=== PATIENT | female | born 1945 | race African-American/Black ===

== ENCOUNTER 2020-03-26 11:37 | Inpatient (IN) | payer MEDICAID, MEDICARE ==
[~2020-03-26] VITALS: Ht 157.5 cm; Wt 90.7 kg
[2020-03-26 11:53] VITALS: BP 156/72
--- NOTE | 2020-03-26 11:55 | NUR ---
dr nunez at bedside evaluating pt.
--- NOTE | 2020-03-26 11:56 | NUR ---
biba bls c/o sob for 2 weeks , afibrile , pmhx of chf , htn . under medication with furosemide . Pt awake , alert, afibrile , sce with bibasaler rales blf . round soft nabs nontender abdomen.
--- NOTE | 2020-03-26 12:03 | NUR ---
xray at bedside.
--- NOTE | 2020-03-26 12:07 | NUR ---
emt at bedside doing ekg .
--- NOTE | 2020-03-26 12:23 | NUR ---
spoke to grand daughter of pt on the phone , gave number [phone].
[2020-03-26 12:29] LABS: BASOPHILS % (AUTO) 0.4 % (0.0-2.0); EOSINOPHILS % (AUTO) 0.4 % (0.0-4.0); LYMPHOCYTES # (AUTO) 1.6 K/uL (2.5-16.5); LYMPHOCYTES % (AUTO) 17.5 % (20.5-51.1); MEAN CORPUSCULAR HEMOGLOBIN 19 pg (27-31); MEAN CORPUSCULAR HGB CONC 29 g/dL (33-37); MEAN CORPUSCULAR VOLUME 65.2 fL (80-94); MONOCYTES # (AUTO) 0.4 K/uL (0.8-1.0); MONOCYTES % (AUTO) 4.9 % (1.7-9.3); NEUTROPHILS # (AUTO) 6.8 K/uL (1.8-7.7); NEUTROPHILS % (AUTO) 76.8 % (42.2-75.2); PLATELET COUNT (AUTO) 330 K/uL (140-450); RED BLOOD CELL COUNT(AUTO) 3.02 MIL/uL (4.20-5.40); RED CELL DISTRIBUTION WIDTH 20.8 % (11.6-13.7); WHITE BLOOD COUNT (AUTO) 8.9 K/uL (4.8-10.8)
[2020-03-26] MEDS ORDERED: FUROSEMIDE 40 MG/4 ML VIAL IVP ONE (12:35)
[2020-03-26 12:41] LABS: HEMATOCRIT 19.7 % (36-48); HEMOGLOBIN 5.7 g/dL (12.0-16.0)
--- NOTE | 2020-03-26 12:49 | NUR ---
RT at bedside for ABG, vss, pt stable at this time
--- NOTE | 2020-03-26 13:00 | NUR ---
IV 18ga rt a/c done, lab at bedside-blood sent.
[2020-03-26] MEDS ORDERED: ACETAMINOPHEN 325 MG TAB PO PRN ×2 (13:40→17:40)
[2020-03-26] MEDS ORDERED: HYDROcodone/APAP 5/325 MG 1 TAB TAB PO PRN ×2 (13:40→17:40)
[2020-03-26] MEDS ORDERED: DOCUSATE SODIUM 100 MG GELCAP PO PRN ×2 (13:40→17:40)
[2020-03-26] MEDS ORDERED: MORPHINE SULFATE 2 MG/ML SYR IVP PRN (13:40)
[2020-03-26] MEDS ORDERED: ONDANSETRON 4 MG/2 ML VIAL IM/IVP PRN ×2 (13:40→17:40)
[2020-03-26 13:46] LABS: PROTHROMBIN TIME 10.1 secs (10.8-13.4)
[2020-03-26 14:00] VITALS: BP 103/51
--- NOTE | 2020-03-26 14:00 | NUR ---
RECEIVED BEDSIDE REPORT FROM ED NURSE. PT RESTING IN BED. ABLE TO MAKE NEEDS KNOWN. RESPIRATIONS EVEN AND UNLABORED WITH NO SOB OR RESPIRATORY DISTRESS. SKIN WARM AND DRY TO TOUCH. MRSA SWAB COLLECTED. UA COLLECTED WELL. SAFETY MEASURES IN PLACE. WILL CONTINUE TO MONITOR
[2020-03-26] MEDS ORDERED: AMLO2.5T PO (14:15)
[2020-03-26] MEDS ORDERED: ISOS10TA9 PO (14:16)
--- NOTE | 2020-03-26 14:28 | NUR ---
Patient will be admitted to care of Dr Painting. Admited to tele. Will go to room 125 a. Belongings list completed. Report to godwin andersen.
[2020-03-26 14:33] LABS: ALBUMIN 2.6 g/dL (3.4-5.0); ANION GAP 16.2 (8-16); ASPARTATE AMINOTRANSFERASE 19 U/L (15-37); CARBON DIOXIDE 23.8 mmol/L (21-32); CHLORIDE 103 mmol/L (98-107); CREATININE 0.8 mg/dL (0.6-1.3); GLUCOSE 185 mg/dL (74-106); SODIUM SERUM 140 mmol/L (136-145); TOTAL BILIRUBIN 0.2 mg/dL (0.0-1.0); UREA NITROGEN, BLOOD 10 mg/dL (7-18)
[2020-03-26] MEDS ORDERED: POTASSIUM CHLORIDE 10 MEQ TABER PO SCH (15:00)
[2020-03-26 15:25] LABS: MAGNESIUM 1.7 mg/dL (1.8-2.4); PHOSPHORUS 2.5 mg/dL (2.5-4.9); THYROID STIMULATING HORMONE 3.24 uIU/mL (0.34-3.74)
--- NOTE | 2020-03-26 15:30 | NUR ---
PT IS TO HAVE BLOOD TRANSFUSION. VERIFIED WITH COSMETICS COUNTER MANAGER. SECOND RN VERIFIED BLOOD AND VITAL SIGNS OBTAINED PRIOR TO HANGING. BLOOD TRANSFUSION HAS STARTED. SAFETY MEASURES IN PLACE. WILL CONTINUE TO MONITOR
[2020-03-26] MEDS: NACL 0.9% 1,000 ML IV SCH (15:59)
--- NOTE | 2020-03-26 16:00 | NUR ---
ADMINISTERED SCHED MED PRESCRIBED PER MD ORDER. PT TOLERATED WELL. MEDICATION EDUCATION PERFORMED. PT VERBALIZED UNDERSTANDING. SAFETY MEASURES IN PLACE. WILL CONTINUE TO MONITOR
[2020-03-26] MEDS ORDERED: LORazepam 2 MG/ML VIAL IM/IVP PRN (17:40)
[2020-03-26] MEDS ORDERED: MEDICATION REC. PHARMACY CONS. 1 EA MISC MC PRN (17:40)
[2020-03-26] MEDS ORDERED: MELATONIN 3 MG TAB PO PRN (17:40)
[2020-03-26] MEDS ORDERED: hydrALAZINE 20 MG/ML VIAL IVP PRN (17:45)
[2020-03-26] MEDS ORDERED: MAG SULF 2000 MG/WATER PREMIX 50 ML IV SCH ×2 (18:00→20:00)
[2020-03-26] MEDS ORDERED: ZOLPIDEM 5 MG TAB PO PRN (18:00)
[2020-03-26] MEDS ORDERED: DEXTROSE 50% 50 ML SYR IVP PRN (18:20)
[2020-03-26] MEDS ORDERED: GLUCAGON 1 MG VIAL IVP PRN (18:20)
--- NOTE | 2020-03-26 18:20 | NUR ---
PT FINISHED 1 UNIT OF BLOOD. NO COMPLICATIONS OR CONCERNS AT THIS TIME. PT TOLERATED WELL. SAFETY MEASURES IN PLACE. WILL CONTINUE TO MONITOR
[2020-03-26 18:40] LABS: APPEARANCE,URINE CLEAR (CLEAR); BILIRUBIN,URINE NEGATIVE (NEGATIVE); BLOOD, URINE NEGATIVE (NEGATIVE); COLOR,URINE YELLOW (YELLOW); LEUKOCYTE ESTERASE ,URINE NEGATIVE (NEGATIVE); NITRITE, URINE NEGATIVE (NEGATIVE); PH,URINE 6.5 (5.0-9.0); UGLUCOSE NEGATIVE (NEGATIVE)
[2020-03-26 18:48] LABS: BARBITURATE, URINE NEGATIVE ng/ml (NEG <=200); BENZODIAZEPINE, URINE NEGATIVE ng/mL (NEG <=200); CANNABINOID, URINE NEGATIVE ng/mL (NEG <=50); COCAINE, URINE NEGATIVE ng/mL (NEG <=300); OPIATE, URINE NEGATIVE ng/mL (NEG <=2000); PHENCYCLIDINE SCREEN,URINE NEGATIVE ng/mL (NEG <=25)
--- NOTE | 2020-03-26 19:05 | NUR ---
ADMINISTERED SCHED MED PRESCRIBED PER MD ORDER. PT TOLERATED WELL. MEDICATION EDUCATION PERFORMED. PT VERBALIZED UNDERSTANDING. SAFETY MEASURES IN PLACE. WILL CONTINUE TO MONITOR
[2020-03-26] MEDS: DOCUSATE SODIUM 100 MG GELCAP PO SCH (19:08)
--- NOTE | 2020-03-26 19:15 | NUR ---
ENDORSED AT BEDSIDE WITH NIGHTSHIFT NURSE. PT IS STABLE
--- NOTE | 2020-03-26 19:16 | NUR ---
RECEIVED BEDSIDE SHIFT REPORT FROM AM NURSE FOR CONTINUITY OF CARE. PT AWAKE AND ALERT IN BED. NO SIGNS OF DISTRESS NOTED. ALL MONITORS ATTACHED AND CALL LIGHT WITHIN REACH.
[2020-03-26 20:00] VITALS: BP 179/69
--- NOTE | 2020-03-26 20:42 | NUR ---
PT COMPLAINED OF SHORTNESS OF BREATH. IMMEDIATELY OBTAINED SPO2 READING. PT AT 98%. PT SAID IT FEELS DIFFICULT TO BREATH. SPOKE WITH MD. JESSICA AND HE SAID TO PLACE PATIENT ON 2L O2 VIA NC FOR COMFORT MEASURES AND HE ORDERED REPEAT LABS TO ASSESS H&H. PT TOLERATED WELL SPO2 INCREASEED TO 100%
[2020-03-26] MEDS: ISOSORBIDE DINITRATE 20 MG TAB PO SCH (21:51)
--- NOTE | 2020-03-26 21:51 | NUR ---
ADMINISTERED 2100 MEDICATIONS. PT TOLERATED WELL NO SIGNS OF DISTRESS NOTED. MONITORS ATTACHED AND CALL LIGHT WITHIN REACH
[2020-03-26] MEDS: BLOOD GLUCOSE MONITORING 1 DEV DEV FS SCH (21:57)
[2020-03-26 23:41] LABS: BASOPHILS % (AUTO) 0.2 % (0.0-2.0); EOSINOPHILS % (AUTO) 0.3 % (0.0-4.0); LYMPHOCYTES # (AUTO) 1.3 K/uL (2.5-16.5); LYMPHOCYTES % (AUTO) 12.8 % (20.5-51.1); MEAN CORPUSCULAR HEMOGLOBIN 21 pg (27-31); MEAN CORPUSCULAR HGB CONC 30 g/dL (33-37); MEAN CORPUSCULAR VOLUME 68.4 fL (80-94); MONOCYTES # (AUTO) 0.5 K/uL (0.8-1.0); MONOCYTES % (AUTO) 5.2 % (1.7-9.3); NEUTROPHILS # (AUTO) 8.3 K/uL (1.8-7.7); NEUTROPHILS % (AUTO) 81.5 % (42.2-75.2); PLATELET COUNT (AUTO) 291 K/uL (140-450); RED BLOOD CELL COUNT(AUTO) 2.93 MIL/uL (4.20-5.40); RED CELL DISTRIBUTION WIDTH 24.7 % (11.6-13.7); WHITE BLOOD COUNT (AUTO) 10.2 K/uL (4.8-10.8)
[2020-03-27] VITALS: BP 156/75
--- NOTE | 2020-03-27 00:20 | NUR ---
RECEIVED A CALL FROM ANAYELI IN LAB WITH A CRITICAL LAB VALUE. PT HEMOGLOBIN 6.0 AND HEMATOCRIT 20.0. IMMEDIATELY AFTER HANGING UP RELAYED LAB VALUE TO DR JESSICA. HE PLACED AN ORDER FOR PRBC TO BE ADMINISTERED WHEN BLOOD IS READY FROM LAB
[2020-03-27 00:55] LABS: FREE T4 (FREE THYROXINE) 0.99 ng/dL (0.76-1.46)
--- NOTE | 2020-03-27 02:18 | NUR ---
ROUNDING. PT EXPERIENCING SOB. SPO2 AT 100% ON 2LO2. MD AWARE OF PT SYMPTOMS WILL ADMINISTER BLOOD PRODUCT WHEN READY FROM LAB
--- NOTE | 2020-03-27 03:10 | NUR ---
PRE-ADMINISTRATION VS OBTAINED FROM PT. BP AT 137/58. PT AWAKE AND ALERT. SPO2 AT 100%. NO SIGNS OF DISTRESS NOTED. WILL OBTAIN BLOOD PRODUCT FROM LAB NOW
--- NOTE | 2020-03-27 03:35 | NUR ---
BLOOD PRODUCT ADMIN STARTED AT 0320. PT V/S WITHIN THE FIRST 15MINUTES WERE WITHIN NORMAL LIMITS, BP IS SLITGHTLY ELEVATED. PT DENIES SYMPTOMS OF INFUSION REACTION. WILL CONTINUE TO MONITOR
[2020-03-27 04:00] VITALS: BP 141/71
--- NOTE | 2020-03-27 05:50 | NUR ---
HOURLY VS OBTAINED ON PATIENT. PT TOLERATING BLOOD PRODUCTS WELL. NO SIGNS OF DISTRESS NOTED. V/S REMAINED SIMILAR THUS FAR.
[2020-03-27] MEDS: NACL 0.9% 1,000 ML IV SCH (06:01)
[2020-03-27 06:07] LABS: T4 (THYROXINE) 6.7 ug/dL (4.5-12.0)
--- NOTE | 2020-03-27 06:45 | NUR ---
BLOOD PRODUCT ADMINISTR AT 0630ATION COMPLETE. PT TOLERATED WELL. POT INFUSION VITALS SIMILAR TO PREVIOUS VITALS. PT DENIES SYMPTOMS OF REACTION. WILL CONTINUE TO MONITOR
[2020-03-27] MEDS ORDERED: SODIUM FERRIC GLUCONATE 125 MG in NACL 0.9% 100 ML IV SCH (07:00)
--- NOTE | 2020-03-27 07:10 | NUR ---
ENDORSED PATIENT TO DAYSHIFT NURSE AT BEDSIDE FOR CONTINUITY OF CARE. PT IN STABLE CONDITION. NO SIGNS OF DISTRESS NOTED. ALL MONITORS ATTACHED AND CALL LIGHT WITHIN REACH
[2020-03-27 07:28] LABS: BASOPHILS % (AUTO) 0.3 % (0.0-2.0); EOSINOPHILS % (AUTO) 0.4 % (0.0-4.0); HEMATOCRIT 25.1 % (36-48); HEMOGLOBIN 7.7 g/dL (12.0-16.0); LYMPHOCYTES # (AUTO) 1.5 K/uL (2.5-16.5); LYMPHOCYTES % (AUTO) 13.8 % (20.5-51.1); MEAN CORPUSCULAR HEMOGLOBIN 22 pg (27-31); MEAN CORPUSCULAR HGB CONC 31 g/dL (33-37); MEAN CORPUSCULAR VOLUME 72.7 fL (80-94); MONOCYTES # (AUTO) 0.7 K/uL (0.8-1.0); MONOCYTES % (AUTO) 6.4 % (1.7-9.3); NEUTROPHILS # (AUTO) 8.8 K/uL (1.8-7.7); NEUTROPHILS % (AUTO) 79.1 % (42.2-75.2); PLATELET COUNT (AUTO) 305 K/uL (140-450); RED BLOOD CELL COUNT(AUTO) 3.45 MIL/uL (4.20-5.40); RED CELL DISTRIBUTION WIDTH 27.1 % (11.6-13.7); WHITE BLOOD COUNT (AUTO) 11.1 K/uL (4.8-10.8)
[2020-03-27 08:00] VITALS: BP 135/64
[2020-03-27 08:09] LABS: ANION GAP 13.7 (8-16); CARBON DIOXIDE 24.5 mmol/L (21-32); CHLORIDE 106 mmol/L (98-107); CREATININE 0.7 mg/dL (0.6-1.3); GLUCOSE 123 mg/dL (74-106); POTASSIUM 3.2 mmol/L (3.5-5.1); SODIUM SERUM 141 mmol/L (136-145); UREA NITROGEN, BLOOD 7 mg/dL (7-18)
[2020-03-27] MEDS: BLOOD GLUCOSE MONITORING 1 DEV DEV FS SCH ×4 (08:10→20:11)
--- NOTE | 2020-03-27 09:35 | NUR ---
PATIENT HAS BEEN SCREENED AND CATEGORIZED MODERATE NUTRITION RISK. PATIENT WILL BE SEEN WITHIN 3-5 DAYS OF ADMISSION. 03/29/20 03/31/[address]
[2020-03-27] MEDS: amLODIPine 5 MG TAB PO SCH (10:40)
[2020-03-27] MEDS: DOCUSATE SODIUM 100 MG GELCAP PO SCH (10:40)
[2020-03-27] MEDS: ISOSORBIDE DINITRATE 20 MG TAB PO SCH ×2 (10:41→20:11)
[2020-03-27] MEDS: PARoxetine 20 MG TAB PO SCH (10:41)
[2020-03-27] MEDS ORDERED: POTASSIUM CHLORIDE 10 MEQ TABER PO SCH (11:00)
--- NOTE | 2020-03-27 11:34 | NUR ---
* ST NOTE * Pt seen at bedside. Pt alert, cooperative and engaged throughout session, reporting no c/o pain at this time. Pt reporting no difficulty masticating or swallowing at this time, but stating she has a poor appetite and cannot taste her food. Additionally, pt reporting she feels nauseous after eating at times. Bedside dysphagia and oral mechanism exams completed. See evaluation report for further details. Pt however presenting with upper and lower dentures in place, which pt reports using at all times during po intake. Pt's sensation also intact for both cheeks, forehead and chin. Pt presenting with volitional throat clear and cough WFL, but no gag reflex at this time. Pt however appearing SOB, w/clinician adjusting pt's 02 cannula at this time. Pt tolerating 4/4 PO trials of regular solid destin crackers as well as 5/5 successive sips of thin liquid apple juice via a straw, all w/o s/s of aspiration or choking. Pt appearing to have no oral phase dysphagia and no suspected pharyngeal phase dysphagia at this time. Pt and caregiver/Charge Nurse Jowie education completed re: aspiration precautions and safe swallow compensatory strategies pt and caregivers can use to aid pt w/swallow function, w/pt and nsg verbalizing understanding and agreement w/clinician's recommendations. It is thus recommended pt remain on current PO diet consistency of mechanical soft-chopped textures w/thin liquids, w/aspiration precautions in place. No further ST follow up recommended at this time. Pt and caregiver/Charge Nurse Jowie education completed re: results of evaluation; benefits of abiding by aspiration precautions and recommended PO diet consistency; and prognosis for improvement; with pt and caregiver/Charge Nurse Jowie verbalizing understanding and agreement w/clinician's recommendations. Recommend: - CONTINUE PO DIET CONSISTENCY OF MECHANICAL SOFT-CHOPPED TEXTURES W/THIN LIQUIDS for all meals - WHOLE PILL PO MEDICATION ADMINISTRATION - MAINTAIN ASPIRATION PRECAUTIONS DURING PT'S PO INTAKE - Pt can self-feed at this time - CUE/REMIND PT TO SIT UP AT 80-90 DEGREE ANGLE DURING PT'S PO INTAKE; EAT/DRINK SLOWLY; TAKE SMALL BITES/SIPS; AND ALTERNATE BTWN SOLIDS & LIQUIDS. No further ST follow up recommended at this time. Time In/Out 10:50 - 11:20 NOMS Level 2
[2020-03-27] MEDS: INSULIN LISPRO SLIDING SCALE 100 UNITS/ML VIAL SUBQ PRN ×2 (13:38→20:25)
[2020-03-27] MEDS ORDERED: FUROSEMIDE 20 MG/2 ML VIAL IVP SCH (16:24)
[2020-03-27 16:55] VITALS: BP 133/65
[2020-03-27] MEDS: PANTOPRAZOLE 40 MG INJ VIAL IVP SCH (17:55)
[2020-03-27] MEDS: SENNA 8.6 MG TAB PO SCH (17:55)
--- NOTE | 2020-03-27 19:30 | NUR ---
RECEIVED BEDSIDE SHIFT REPORT FROM AM NURSENEEL FOR CONTINUITY OF CARE. PT AWAKE AND ALERT IN BED. NO SIGNS OF DISTRESS NOTED. IV SITE ON RAC 20G, PATENT, INTACT AND ASYMPTOMATIC. SKIN INTACT, WARM AND DRY TO TOUCH. POC REVIEWED AND DISCUSSED WITH PT. PT VERBALIZED UNDERSTANDING. ALL MONITORS ATTACHED AND CALL LIGHT WITHIN REACH. BED IN LOW POSITION. WILL CONTINUE TO MONITOR.
[2020-03-27 20:00] VITALS: BP 124/61
[2020-03-27] MEDS: FUROSEMIDE 20 MG/2 ML VIAL IVP SCH (20:11)
[2020-03-27] MEDS: busPIRone 5 MG TAB PO SCH (20:11)
[2020-03-27] MEDS: LACTULOSE 20 GM/30 ML UDC PO SCH (20:11)
--- NOTE | 2020-03-27 20:11 | NUR ---
GIVEN LASIX, BUSPAR, CEPHULAC, AND ISORDIL. PT TOLERATED WELL. BS CHECKED, 159, ADMINISTERED INSULIN SLIDING SCALE. WILL CONTINUE TO MONITOR.
--- NOTE | 2020-03-27 22:00 | NUR ---
ASSISTED PT TO GO TO RESTROOM. PT HAD SOB AFTER AMBULATED. A FEW MINUTES LATER, NO MORE SOB NOTED. REPORTED TO DR. JESSICA AND RECEIVED PRN BREATHING TX FOR LATER.
[2020-03-27] MEDS ORDERED: ALBUTEROL SULFATE/IPRATROPIU 3 ML SOL IH PRN (22:20)
[2020-03-28] VITALS: BP 123/57
--- NOTE | 2020-03-28 | NUR ---
VS WITHIN PT'S BASELINE. WILL CONTINUE TO MONITOR.
--- NOTE | 2020-03-28 02:11 | NUR ---
PT SLEEPING IN BED COMFORTABLY. NO ACUTE DISTRESS NOTED.
[2020-03-28 04:00] VITALS: BP 118/49
--- NOTE | 2020-03-28 04:04 | NUR ---
VS CHECKED, WITHIN PT'S BASELINE. WILL CONTINUE TO MONITOR.
[2020-03-28] MEDS: BLOOD GLUCOSE MONITORING 1 DEV DEV FS SCH ×4 (06:02→20:28)
--- NOTE | 2020-03-28 06:02 | NUR ---
BS CHECKED, 108. NO INSULIN COVERAGE NEEDED.
[2020-03-28] MEDS: NACL 0.9% 1,000 ML IV SCH (06:18)
[2020-03-28 06:55] LABS: MAGNESIUM 1.7 mg/dL (1.8-2.4); PHOSPHORUS 3.1 mg/dL (2.5-4.9)
[2020-03-28 07:06] LABS: ANION GAP 13.1 (8-16); CARBON DIOXIDE 26.1 mmol/L (21-32); CHLORIDE 105 mmol/L (98-107); CREATININE 0.8 mg/dL (0.6-1.3); GLUCOSE 104 mg/dL (74-106); POTASSIUM 3.2 mmol/L (3.5-5.1); SODIUM SERUM 141 mmol/L (136-145); UREA NITROGEN, BLOOD 7 mg/dL (7-18)
--- NOTE | 2020-03-28 07:09 | NUR ---
RECEIVED REPORT FROM VAT HOUSE SUPERVISOR NURSE PT ASLEEP IN BED. AOX4, NO C/O PAIN, NO SOB. ON 2LPM O2 JOSE NC. WITH IV ON R AC 20G RUNNING ON NS AT 1OCC. EGD/COLONOSCOPY CONSENT NOT YET OBTAINED. PT WAITING FOR CARDIO CONSULT FOR CLEARANCE. PLAN OF CARE REVIEWED. PT VERBALIZED UNDERSTANDING. CALL LIGHT WITHIN REACH. WILL CONT TO MONITOR.
[2020-03-28 08:00] VITALS: BP 148/68
--- NOTE | 2020-03-28 08:45 | NUR ---
DUE MORNING MEDS GIVEN. TOLERATED WELL
[2020-03-28] MEDS: PANTOPRAZOLE 40 MG INJ VIAL IVP SCH (08:57)
[2020-03-28] MEDS: FUROSEMIDE 20 MG/2 ML VIAL IVP SCH ×2 (08:57→20:36)
[2020-03-28] MEDS: busPIRone 5 MG TAB PO SCH ×2 (08:57→20:36)
[2020-03-28] MEDS: SPIRONOLACTONE 25 MG TAB PO SCH (08:57)
[2020-03-28] MEDS: ISOSORBIDE DINITRATE 20 MG TAB PO SCH ×2 (08:58→20:37)
[2020-03-28] MEDS: SENNA 8.6 MG TAB PO SCH ×3 (08:58→17:30)
[2020-03-28] MEDS: amLODIPine 5 MG TAB PO SCH (08:58)
[2020-03-28] MEDS: LACTULOSE 20 GM/30 ML UDC PO SCH ×3 (08:58→20:37)
[2020-03-28] MEDS: PARoxetine 20 MG TAB PO SCH (08:58)
[2020-03-28] MEDS ORDERED: POTASSIUM CHLORIDE 20% 40 MEQ/15 ML UDC GT SCH (09:00)
[2020-03-28 09:43] LABS: BASOPHILS # (AUTO) 0.2 K/uL (0.00-0.22); BASOPHILS % (AUTO) 1.8 % (0.0-2.0); EOSINOPHILS # (AUTO) 0.2 K/uL (0-0.4); EOSINOPHILS % (AUTO) 1.5 % (0.0-4.0); HEMATOCRIT 24.5 % (36-48); HEMOGLOBIN 7.4 g/dL (12.0-16.0); LYMPHOCYTES # (AUTO) 2.3 K/uL (2.5-16.5); LYMPHOCYTES % (AUTO) 18.6 % (20.5-51.1); MEAN CORPUSCULAR HEMOGLOBIN 22 pg (27-31); MEAN CORPUSCULAR HGB CONC 30 g/dL (33-37); MEAN CORPUSCULAR VOLUME 73.5 fL (80-94); MONOCYTES # (AUTO) 0.9 K/uL (0.8-1.0); NEUTROPHILS # (AUTO) 8.7 K/uL (1.8-7.7); NEUTROPHILS % (AUTO) 71.1 % (42.2-75.2); PLATELET COUNT (AUTO) 328 K/uL (140-450); RED BLOOD CELL COUNT(AUTO) 3.34 MIL/uL (4.20-5.40); RED CELL DISTRIBUTION WIDTH 26.7 % (11.6-13.7); WHITE BLOOD COUNT (AUTO) 12.3 K/uL (4.8-10.8)
--- NOTE | 2020-03-28 09:45 | NUR ---
WITH EPISODE OF TACHYCARDIA HR 130. INSTRUCTED TO DO DEEP BREATHING EXERCISES. EFFECTIVE, HR 98
--- NOTE | 2020-03-28 10:00 | NUR ---
PT VERBALIZED NOT HAVING BOWEL MOVEMENT FOR [address] COHEN MADE AWARE.
--- NOTE | 2020-03-28 10:36 | NUR ---
DISCHARGE PLANNING: THIS IS A 74 Y/O FEMALE PATIENT FROM HOME, WHO CAME IN DUE TO SOB X 2 WEEKS. PAST MEDICAL HISTORY INCLUDE CHF, HTN, ANXIETY, DEPRESSION, ARTHRITIS AND INSOMNIA. INITIAL DIAGNOSIS OF SEVERE ANEMIA. LABS INCLUDE WBC 12.3, H/H ON ADMISSION 6.0/20.0-TODAY 7.4/24.5, BUN/CREA 7/0.8, NA/K 141/3.2 AND MAG 1.7. ON PAXIL AND BUSPAR. GI, CARDIO AND PULMO CONSULTS IN PLACE. DC PLAN BACK TO HOME ONCE STABLE. Addendum: 03/30/20 at 0917 by Brianna Mckinley CM RECEIVED AN ORDER FOR HOME HEALTH FOR PT. CONTACTED FABBY TYSON AT [phone] OPT 0, ABLE TO SPEAK TO [employer]UL[employer]ER REQUESTED TO BE TRANSFERRED TO CASE MANAGEMENT. SHE STATED THEY DO NOT HAVE A CASE MANAGEMENT DEPARTMENT HOWEVER SHE TOLD ME THAT SHE CAN HELP. SHE PROVIDED ME WITH THE FAX NUMBER [phone] TO SEND ORDER. ORDER SENT. Addendum: 03/30/20 at 1037 by Brianna Mckinley CM ORDER FAXED TO [facility] AND [facility]. PER BENNY OF [facility], THEY ARE ABLE TO ACCEPT THE PATIENT. DR. COHEN MADE AWARE. Addendum: 03/30/20 at 1411 by Brianna Mckinley CM PER SARA OF [facility], THEY ARE ABLE TO ACCEPT THE PATIENT. RECEIVED A CALL FROM [facility], STATING THAT THEY ARE NOT CONTRACTED WITH [facility] AND IS CONTRACTED WITH [facility]. SARA OF [facility] MADE AWARE, SHE STATED THAT WHEN THEY RAN THE ELIGIBILITY IT WENT THROUGH MEDICARE AND THEY ARE GOOD TO GO. INFORMED [facility] AT [phone], SHE STATED IF [facility] IS ABLE TO RUN THE ELIGIBILITY THAT IS ALRIGHT WITH THEM. DR. COHEN MADE AWARE.
[2020-03-28] MEDS ORDERED: MAGNESIUM CITRATE 300 ML BTL PO SCH ×2 (11:00→21:00)
--- NOTE | 2020-03-28 11:40 | NUR ---
MAGNESIUM CITRATE GIVEN ORDERED. PT TOLERATED WELL
[2020-03-28] MEDS: INSULIN LISPRO SLIDING SCALE 100 UNITS/ML VIAL SUBQ PRN (11:42)
[2020-03-28 12:00] VITALS: BP 105/55
[2020-03-28] MEDS ORDERED: POTASSIUM CHLORIDE 10 MEQ TABER PO SCH (12:00)
[2020-03-28] MEDS ORDERED: MAG SULF 2000 MG/WATER PREMIX 50 ML IV SCH (12:00)
[2020-03-28 12:06] LABS: FOLIC ACID 14.4 ng/mL (>3.0)
--- NOTE | 2020-03-28 12:20 | NUR ---
POTASSIUM 40MEQ PO AND MAGNESIUM IV GIVEN ORDERED. NO C/O PAIN, NO SOB
--- NOTE | 2020-03-28 13:15 | NUR ---
PT REPORTED HAVING 1 LARGE BOWEL MOVEMENT
--- NOTE | 2020-03-28 15:30 | NUR ---
PT AWAKE IN BED. NO C/O PAIN, NO SOB, V/S WNL. WITH EPISODES OF LOOSE STOOL. RESIDENT MD AWARE
[2020-03-28 16:00] VITALS: BP 132/70
[2020-03-28] MEDS: POLYETHYLENE GLYCOL 17 GM/PKT PO SCH (17:30)
[2020-03-28] MEDS: POTASSIUM CHLORIDE 20% 40 MEQ/15 ML UDC GT SCH (17:30)
--- NOTE | 2020-03-28 17:30 | NUR ---
BLOOD SUGAR 160. COVERAGE GIVEN. PT WANTS TO TALK TO MD BEFORE SIGNING EGD/COLONOSCOPY CONSENT. RESIDENT MD MADE AWARE
--- NOTE | 2020-03-28 19:15 | NUR ---
ENDORSED TO LEAVE COORDINATOR FOR CONTINUITY OF CARE. IN STABLE CONDITION
--- NOTE | 2020-03-28 19:16 | NUR ---
RECEIVED BEDSIDE REPORT FROM DAY RN. PT IS AAOX4. RESPIRATIONS ARE EQUAL AND UNLABORED ON 2L O2 VIA NC. LUNGS ARE DIMINISHED AT BASE. SKIN IS INTACT. COLOR IS APPROPRIATE FOR ETHNICITY. PT WITH IV ON LAC 20G SL. PT IS ON BOWEL PREP FOR EGD AND COLONOSCOPY TOMORROW. DX: ANEMIA. H&H STABLE TODAY. PT ON STANDARD ISOLATION. POC DISCUSSED WITH PT. CALL LIGHT IS WITHIN REACH. WILL CONTINUE TO MONITOR.
[2020-03-28] MEDS ORDERED: HYDRAGUARD CREAM TP PRN (19:45)
[2020-03-28 20:00] VITALS: BP 143/69
--- NOTE | 2020-03-28 20:36 | NUR ---
VSS. BLOOD SUGAR 108 NO COVERAGE NEEDED. EDUCATED PT SHE WILL BE NPO AFTER MIDNIGHT FOR EGD AND COLOSCOPY TOMORROW VERBALIZED UNDERSTANDING. GEMA MEDICATIONS GIVEN EXCEPT CITROMA PT REFUSED. EDUCATED PT BOWEL NEED TO BE CLEAR FOR TEST. PT STATES, "I BEEN GOING TO THE BATHROOM EVERY 15MIN IM TIRED." PT TOOK LACTULOSE. WILL MAKE MD AWARE. EDUCATED PT SHE MAY STILL REQUIRE CITROMA LATER TONIGHT OR MORNING. SHE AGREED.
--- NOTE | 2020-03-28 21:30 | NUR ---
PATIENT SIGN CONSENT FOR EGD AND COLOSCOPY WITH DR. MCELROY FOR TOMORROW 03/29/20. ALL QUESTIONS AND CONCERNS WERE ADDRESSED BY MD. PT WAS CLEARED BY BURN OUT SCARFING OPERATOR.
[2020-03-28] MEDS ORDERED: POLYETHYLENE GLYCOL 17 GM/PKT PO ONE (23:10)
--- NOTE | 2020-03-28 23:52 | NUR ---
VSS. GEMA MIRALAX GIVEN PER ORDERS. ALL SAFETY MEASURES ARE IN PLACE. CALL LIGHT IS WITHIN REACH. WILL CONTINUE TO MONITOR.
[2020-03-29] VITALS: BP 127/59
[2020-03-29] MEDS: HYDRAGUARD CREAM TP SCH ×2 (01:05→12:35)
--- NOTE | 2020-03-29 02:15 | NUR ---
PATIENT IS SLEEPING COMFORTABLY IN BED WITH EYES CLOSED. CHEST RISE AND FALL NOTED. ALL SAFETY MEASURES ARE IN PLACE. WILL CONTINUE TO MONITOR.
[2020-03-29 04:00] VITALS: BP 135/71
--- NOTE | 2020-03-29 04:00 | NUR ---
VITAL SIGNS ARE WITHIN NORMAL LIMITS. DENIES PAIN. ALL SAFETY MEASURES ARE IN PLACE. WILL CONTINUE TO MONITOR.
[2020-03-29] MEDS: NACL 0.9% 1,000 ML IV SCH (05:31)
[2020-03-29] MEDS: BLOOD GLUCOSE MONITORING 1 DEV DEV FS SCH ×4 (06:19→19:51)
[2020-03-29 06:23] LABS: BASOPHILS # (AUTO) 0.1 K/uL (0.00-0.22); BASOPHILS % (AUTO) 0.6 % (0.0-2.0); EOSINOPHILS # (AUTO) 0.1 K/uL (0-0.4); HEMATOCRIT 24.8 % (36-48); HEMOGLOBIN 7.6 g/dL (12.0-16.0); LYMPHOCYTES # (AUTO) 1.7 K/uL (2.5-16.5); LYMPHOCYTES % (AUTO) 14.4 % (20.5-51.1); MEAN CORPUSCULAR HEMOGLOBIN 22 pg (27-31); MEAN CORPUSCULAR HGB CONC 31 g/dL (33-37); MEAN CORPUSCULAR VOLUME 72.7 fL (80-94); MONOCYTES # (AUTO) 0.8 K/uL (0.8-1.0); MONOCYTES % (AUTO) 6.8 % (1.7-9.3); NEUTROPHILS # (AUTO) 8.8 K/uL (1.8-7.7); NEUTROPHILS % (AUTO) 77.2 % (42.2-75.2); PLATELET COUNT (AUTO) 337 K/uL (140-450); RED BLOOD CELL COUNT(AUTO) 3.41 MIL/uL (4.20-5.40); RED CELL DISTRIBUTION WIDTH 27.4 % (11.6-13.7); WHITE BLOOD COUNT (AUTO) 11.5 K/uL (4.8-10.8)
--- NOTE | 2020-03-29 07:17 | NUR ---
GAVE BEDSIDE REPORT TO DAY RN. PT ENDORSED IN STABLE CONDITION.
--- NOTE | 2020-03-29 07:19 | NUR ---
RECEIVED PATIENT FROM PLANT PRODUCTION WORKER NURSE FOR CONTINUITY OF CARE. PATIENT CURRENTLY SLEEPING AT THIS TIME. NO SIGNS OF DISTRESS NOTED. RESPIRATIONS EVEN AND UNLABORED, ON 2L O2 VIA NC. VISIBLE CHEST RISE AND FALL NOTED. ON TELE MONITORING. ABDOMEN SOFT AND NONTENDER. PATIENT HAS SCHEDULED EGD WITH COLONOSCOPY. BM IS CLEAR PER PM NURSE. PATIENT SIGNED CONSENT. SKIN WARM, DRY, AND INTACT. PATIENT IS CONTINENT AND AMBULATES TO THE BATHROOM. ON UNIVERSAL FALL PRECAUTIONS. BED IN LOW POSITION. BED ALARM ACTIVATED. CALL LIGHT IS WITHIN REACH. WILL CONTINUE TO MONITOR
[2020-03-29 07:39] LABS: ANION GAP 13.3 (8-16); CARBON DIOXIDE 24.5 mmol/L (21-32); CHLORIDE 105 mmol/L (98-107); CREATININE 0.8 mg/dL (0.6-1.3); GLUCOSE 124 mg/dL (74-106); POTASSIUM 3.8 mmol/L (3.5-5.1); SODIUM SERUM 139 mmol/L (136-145); UREA NITROGEN, BLOOD 8 mg/dL (7-18)
[2020-03-29 07:44] LABS: MAGNESIUM 1.9 mg/dL (1.8-2.4); PHOSPHORUS 2.9 mg/dL (2.5-4.9)
--- NOTE | 2020-03-29 07:53 | NUR ---
DR. DEL RIO AND THE RESIDENT DOCTORS MADE ROUNDS
[2020-03-29 08:00] VITALS: BP 144/60
--- NOTE | 2020-03-29 08:08 | NUR ---
PT IS CURRENTLY ON 2L NC. SPO2 READING 96% SHOWS NO SIGN OF DISTRESS AT THIS TIME. NO TX INDICATED.
[2020-03-29] MEDS: PARoxetine 20 MG TAB PO SCH (08:33)
[2020-03-29] MEDS: PANTOPRAZOLE 40 MG INJ VIAL IVP SCH (08:33)
[2020-03-29] MEDS: SENNA 8.6 MG TAB PO SCH ×2 (08:34→12:35)
[2020-03-29] MEDS: busPIRone 5 MG TAB PO SCH (08:34)
[2020-03-29] MEDS: SPIRONOLACTONE 25 MG TAB PO SCH (08:35)
[2020-03-29] MEDS: amLODIPine 5 MG TAB PO SCH (08:35)
[2020-03-29] MEDS: FUROSEMIDE 20 MG/2 ML VIAL IVP SCH ×2 (08:35→20:19)
[2020-03-29] MEDS: POLYETHYLENE GLYCOL 17 GM/PKT PO SCH ×2 (08:36→12:35)
[2020-03-29] MEDS: ISOSORBIDE DINITRATE 20 MG TAB PO SCH ×2 (08:36→20:17)
[2020-03-29] MEDS: LACTULOSE 20 GM/30 ML UDC PO SCH ×2 (08:36→12:35)
--- NOTE | 2020-03-29 08:36 | NUR ---
GIVEN MORNING MEDICATIONS PO. LASIX IVP. PROTONIX IVP. EXPLAINED MEDICATIONS. PATIENT VERBALIZED UNDERSTANDING. BED IN LOW POSITION. CALL LIGHT IS WITHIN REACH.
[2020-03-29] MEDS: POTASSIUM CHLORIDE 20% 40 MEQ/15 ML UDC GT SCH ×2 (08:43→12:35)
[2020-03-29] MEDS ORDERED: POLYETHYLENE GLYCOL 17 GM/PKT PO SCH (09:00)
--- NOTE | 2020-03-29 09:29 | NUR ---
GIVEN ICE CHIPS BECAUSE STATED SHE IS HUNGRY. EXPLAINED THAT SHE NEEDS TO NPO BECAUSE SHE HAS SCHEDULED EGD/COLONOSCOPY.
--- NOTE | 2020-03-29 10:05 | NUR ---
GIVEN WARM BLANKET PER PATIENT'S REQUEST.
[2020-03-29 10:53] LABS: LACTATE DEHYDROGENASE 246 IU/L (0-214)
--- NOTE | 2020-03-29 11:37 | NUR ---
BLOOD SUGAR CHECKED: 139. NO INSULIN COVERAGED. VS CHECKED.
[2020-03-29 12:00] VITALS: BP 127/58
--- NOTE | 2020-03-29 12:14 | NUR ---
GIVEN SCHEDULED MEDICATIONS PO. GIVEN MEDICATION EDUCATION. PATIENT VERBALIZED UNDERSTANDING. BED IN LOW POSITION. CALL LIGHT IS WITHIN REACH. WILL CONTINUE TO MONITOR.
[2020-03-29] MEDS ORDERED: MIDAZOLAM 2 MG/2 ML VIAL ONE (12:23)
[2020-03-29] MEDS ORDERED: fentaNYL 0.05 MG/ML VIAL ONE ×2 (12:23→13:25)
[2020-03-29] MEDS ORDERED: diphenhydrAMINE 50 MG/ML VIAL ONE (12:23)
--- NOTE | 2020-03-29 12:32 | NUR ---
OFF UNIT TO OR FOR [facility] EGD/COLONOSCOPY
[2020-03-29] MEDS ORDERED: fentaNYL 0.05 MG/ML VIAL IVP ONE (13:10)
[2020-03-29] MEDS ORDERED: MIDAZOLAM 2 MG/2 ML VIAL IVP ONE (13:11)
[2020-03-29] MEDS ORDERED: busPIRone 5 MG TAB PO PRN (14:10)
--- NOTE | 2020-03-29 14:15 | NUR ---
PATIENT RETURNED FROM OR. POST-OP VITALS WILL BE CHECKED.
--- NOTE | 2020-03-29 15:01 | NUR ---
PATIENT IS CURRENTLY SLEEPING AT THIS TIME. NO SIGNS OF DISTRESS NOTED. BED IN LOW POSITION. CALL LIGHT IS WITHIN REACH. WILL CONTINUE TO MONITOR.
--- NOTE | 2020-03-29 15:29 | NUR ---
JUD AGUILAR. EXPLAINED MEDICATION. PATIENT VERBALIZED UNDERSTANDING. BED IN LOW POSITION. CALL LIGHT IS WITHIN REACH. WILL CONTINUE TO MONITOR.
[2020-03-29 16:00] VITALS: BP 133/70
[2020-03-29] MEDS ORDERED: SODIUM FERRIC GLUCONATE 125 MG in NACL 0.9% 100 ML IV SCH (16:00)
--- NOTE | 2020-03-29 16:13 | NUR ---
NEW IV SITE IN THE LEFT HAND GAUGE 24. GOOD BLOOD RETURN. IT IS NOW RUNNING FERRLICET AT A RATE OF 110 ML/HR. PATIENT TOLERATED WELL. DC RIGHT AC IT WAS LEAKING.
[2020-03-29] MEDS: FERROUS SULFATE 325 MG TABEC PO SCH (16:27)
--- NOTE | 2020-03-29 16:27 | NUR ---
BLOOD SUGAR CHEC;: 125. NO INSULIN COVERAGE. GIVEN FERROUS SULFATE PO. EXPLAINED MEDICATION. PATIENT VERBALIZED UNDERSTANDING. WILL CONTINUE TO MONITOR.
--- NOTE | 2020-03-29 17:36 | NUR ---
PATIENT IS EATING DINNER AT THIS TIME. NO SIGNS OF DISTRESS NOTED. BED IN LOW POSITION. CALL LIGHT IS WITHIN REACH. WILL CONTINUE TO MONITOR.
--- NOTE | 2020-03-29 19:03 | NUR ---
ENDORSED PATIENT TO THE POT FLUXER NURSE FOR CONTINUITY OF CARE. PATIENT IS IN STABLE CONDITION.
--- NOTE | 2020-03-29 19:04 | NUR ---
RECEIVED BEDSIDE REPORT FROM DAY RN. PT IS AAOX4. RESPIRATIONS ARE EQUAL AND UNLABORED ON 2L O2 VIA NC. LUNGS ARE DIMINISHED AT BASE. SKIN IS INTACT. COLOR IS APPROPRIATE FOR ETHNICITY. PT WITH IV ON L HAND 24G SL. PT HAD EGD AND COLONOSCOPY TODAY NO SIGNS OF BLEEDING. DX: ANEMIA. H&H STABLE TODAY. PT ON STANDARD ISOLATION. POC DISCUSSED WITH PT. CALL LIGHT IS WITHIN REACH. WILL CONTINUE TO MONITOR.
[2020-03-29 20:00] VITALS: BP 140/66
--- NOTE | 2020-03-29 20:19 | NUR ---
VSS. GEMA ISODRIL GIVEN. PT REMOVED IV ACCESS AGAIN. PT STATES, "YEAH I PULLED IT OUT BECAUSE IT WAS HURTING." TOLD PATIENT SHE WILL NEEDS NEW IV FOR HER LASIX SHE SAID NO THEY HURT. TALKED WITH WILL SWITCH LASIX TO PO 40MG. WILL F/U.
[2020-03-29] MEDS ORDERED: FUROSEMIDE 40 MG TAB PO SCH (20:20)
--- NOTE | 2020-03-29 21:01 | NUR ---
VSS.PO LASIX GIVEN AT THIS TIME. PT TOLERATED WELL ALL SAFETY MEASURES ARE IN PLACE. WILL CONTINUE TO MONITOR.
--- NOTE | 2020-03-29 22:23 | NUR ---
ADMINISTERED AMBIEN PER REQUEST FOR INSOMNIA. PT TOLERATED WELL. CALL LIGHT IS WITHIN REACH.
[2020-03-30] VITALS: BP 134/68
--- NOTE | 2020-03-30 | NUR ---
VITAL SIGNS ARE WITHIN NORMAL LIMITS. ALL NEEDS MET AT THIS TIME. CALL LIGHT IS WITHIN REACH. WILL CONTINUE TO MONITOR.
[2020-03-30] MEDS: HYDRAGUARD CREAM TP SCH ×2 (00:07→12:57)
--- NOTE | 2020-03-30 02:15 | NUR ---
PT SLEEPING COMFORTABLY IN BED WITH EYES CLOSED. CHEST RISE AND FALL NOTED.NO S/S OF DISTRESS. CALL LIGHT IS WITHIN REACH.WILL CONTINUE TO MONITOR.
[2020-03-30 04:00] VITALS: BP 124/76
--- NOTE | 2020-03-30 04:00 | NUR ---
VITAL SIGNS ARE WITHIN NORMAL LIMITS. ALL SAFETY MEASURES ARE IN PLACE. CALL LIGHT WITHIN REACH.
[2020-03-30] MEDS: BLOOD GLUCOSE MONITORING 1 DEV DEV FS SCH ×2 (05:54→11:34)
--- NOTE | 2020-03-30 06:35 | NUR ---
BLOOD SUGAR 126 NO COVERAGE NEEDED. NO S/S OF DISTRESS. PT IS STABLE. WILL ENDORSE TO DAY RN
--- NOTE | 2020-03-30 07:21 | NUR ---
GAVE BEDSIDE REPORT TO DAY RN. PT ENDORSED IN STABLE CONDITION.
--- NOTE | 2020-03-30 07:21 | NUR ---
RECEIVED REPORT FROM NIGHT NURSE. PATIENT ALERT AND ORIENTED X4. PLANS OF CARE DISCUSSED. PATIENT ABLE TO MAKE NEEDS KNOWN. PER REPORT PATIENT HAS NO IV ACCESS, PATIENT REFUSED TO HAVE IV INSERTION, DR. STRAUSS. NO DISTRESS NOTED. SAFETY MEASURES IN PLACE.
[2020-03-30 07:38] LABS: BASOPHILS # (AUTO) 0.2 K/uL (0.00-0.22); BASOPHILS % (AUTO) 1.7 % (0.0-2.0); EOSINOPHILS # (AUTO) 0.2 K/uL (0-0.4); EOSINOPHILS % (AUTO) 1.9 % (0.0-4.0); HEMATOCRIT 24.9 % (36-48); HEMOGLOBIN 7.8 g/dL (12.0-16.0); LYMPHOCYTES # (AUTO) 1.9 K/uL (2.5-16.5); LYMPHOCYTES % (AUTO) 20.8 % (20.5-51.1); MEAN CORPUSCULAR HEMOGLOBIN 23 pg (27-31); MEAN CORPUSCULAR HGB CONC 31 g/dL (33-37); MONOCYTES # (AUTO) 0.8 K/uL (0.8-1.0); MONOCYTES % (AUTO) 8.4 % (1.7-9.3); NEUTROPHILS # (AUTO) 6.1 K/uL (1.8-7.7); NEUTROPHILS % (AUTO) 67.2 % (42.2-75.2); PLATELET COUNT (AUTO) 371 K/uL (140-450); RED BLOOD CELL COUNT(AUTO) 3.41 MIL/uL (4.20-5.40); RED CELL DISTRIBUTION WIDTH 27.8 % (11.6-13.7); WHITE BLOOD COUNT (AUTO) 9.1 K/uL (4.8-10.8)
[2020-03-30 08:00] VITALS: BP 111/68
[2020-03-30 08:04] LABS: ANION GAP 13.7 (8-16); CHLORIDE 105 mmol/L (98-107); GLUCOSE 119 mg/dL (74-106); MAGNESIUM 1.6 mg/dL (1.8-2.4); PHOSPHORUS 3.4 mg/dL (2.5-4.9); POTASSIUM 3.7 mmol/L (3.5-5.1); SODIUM SERUM 140 mmol/L (136-145); UREA NITROGEN, BLOOD 6 mg/dL (7-18)
[2020-03-30] MEDS: PANTOPRAZOLE 40 MG INJ VIAL IVP SCH (08:09)
[2020-03-30] MEDS: FUROSEMIDE 20 MG/2 ML VIAL IVP SCH (08:09)
[2020-03-30] MEDS: FERROUS SULFATE 325 MG TABEC PO SCH (08:20)
[2020-03-30] MEDS: ISOSORBIDE DINITRATE 20 MG TAB PO SCH (08:21)
[2020-03-30] MEDS: amLODIPine 5 MG TAB PO SCH (08:21)
[2020-03-30] MEDS: PARoxetine 20 MG TAB PO SCH (08:22)
[2020-03-30] MEDS: LACTULOSE 20 GM/30 ML UDC PO SCH ×2 (08:23→08:29)
[2020-03-30] MEDS: SPIRONOLACTONE 25 MG TAB PO SCH (08:23)
[2020-03-30] MEDS ORDERED: POTASSIUM CHLORIDE 20% 40 MEQ/15 ML UDC GT SCH (09:00)
[2020-03-30] MEDS ORDERED: FOLIC ACID 1 MG TAB PO SCH (09:00)
--- NOTE | 2020-03-30 09:00 | NUR ---
AM MEDICATIONS GIVEN. PATIENT ALERT AND ORIENTED X4. NO S/S OF DISTRESS NOTED.
--- NOTE | 2020-03-30 11:00 | NUR ---
PATIENT ALERT AND ORIENTED X4. NO DISTRESS NOTED. CALL LIGHT WITHIN REACH.
[2020-03-30] MEDS ORDERED: PSYLLIUM 12.2 GM/PKT PO SCH (11:20)
[2020-03-30] MEDS ORDERED: FER325 PO (11:29)
[2020-03-30] MEDS ORDERED: LACT10SO11 PO (11:29)
[2020-03-30] MEDS ORDERED: METPCK PO (11:30)
[2020-03-30] MEDS ORDERED: PAX20 PO (11:57)
[2020-03-30] MEDS ORDERED: FURO40TA9 PO (11:57)
[2020-03-30] MEDS ORDERED: SPIR25TA PO (11:57)
[2020-03-30 12:00] VITALS: BP 127/70
[2020-03-30] MEDS ORDERED: LACT10SO1 PO (12:27)
[2020-03-30] MEDS ORDERED: PSYL0.4C2 PO (12:27)
[2020-03-30] MEDS ORDERED: FURO20TA8 PO (12:27)
[2020-03-30] MEDS ORDERED: MELA5TAB6 PO (13:13)
--- NOTE | 2020-03-30 13:15 | NUR ---
DR. COHEN AT BEDSIDE.
--- NOTE | 2020-03-30 13:20 | NUR ---
TRANSPORTED PATIENT VIA W/C TO THE [facility] FOR DISCHARGE. PATIENT DISCHARGE TO HOME PICKED UP BY GRAND DAUGHTER VIA PRIVATE VEHICLE. ALL DISCHARGE INSTRUCTIONS PROVIDED AND ALL BELONGINGS GIVEN TO PATIENT. INSTRUCTED PATIENT IN REGARDS TO HER MEDICATION PRESCRIPTIONS TO BE PICKED UP BY PHARMACY SHE PROVIDED. SHE HAS NO IV ACCESS. ID BANDS REMOVED. PATIENT STABLE.
[2020-04-03 06:06] LABS: LD1 FRACTION 22 % (17-32); LD2 FRACTION 37 % (25-40); LD3 FRACTION 23 % (17-27); LD4 FRACTION 11 % (5-13); LD5 FRACTION 7 % (4-20)
== END 2020-03-30 13:21 | disposition home health service (06) | DRG 254 ==
LOC: MED 11:37 → MMU 13:42 → OBSVTOIN 03-27 09:58
PROVIDERS: ADMIT General Practice; ATTEND General Practice
PROC: 30233N1 Transfusion of Nonautologous Red Blood Cells into Peripheral Vein, Percutaneous Approach (ICD-10-PCS; principal; 2020-03-26)
PROC: 0DBN8ZX Excision of Sigmoid Colon, Via Natural or Artificial Opening Endoscopic, Diagnostic (ICD-10-PCS; 2020-03-29)
PROC: 0DB68ZX Excision of Stomach, Via Natural or Artificial Opening Endoscopic, Diagnostic (ICD-10-PCS; 2020-03-29 12:30)
DX: K64.8 Other hemorrhoids (principal); I50.43 Acute on chronic combined systolic (congestive) and diastolic (congestive) heart failure; E44.0 Moderate protein-calorie malnutrition; E11.65 Type 2 diabetes mellitus with hyperglycemia; E66.01 Morbid (severe) obesity due to excess calories; E83.42 Hypomagnesemia; I08.1 Rheumatic disorders of both mitral and tricuspid valves; K57.32 Diverticulitis of large intestine without perforation or abscess without bleeding; D50.9 Iron deficiency anemia, unspecified; E87.6 Hypokalemia; F32.9 Major depressive disorder, single episode, unspecified; Z68.36 Body mass index [BMI] 36.0-36.9, adult; F41.9 Anxiety disorder, unspecified; K44.9 Diaphragmatic hernia without obstruction or gangrene; K59.09 Other constipation; Z90.710 Acquired absence of both cervix and uterus; M19.90 Unspecified osteoarthritis, unspecified site; I25.10 Atherosclerotic heart disease of native coronary artery without angina pectoris; Z79.899 Other long term (current) drug therapy; I11.0 Hypertensive heart disease with heart failure; G47.00 Insomnia, unspecified; I27.20 Pulmonary hypertension, unspecified; K52.9 Noninfective gastroenteritis and colitis, unspecified
CPT/HCPCS: 43239; 45380; 99285; G0378; 36415; 36430; 36600; 71045; 80048; 80053; 80305; 81003; 82140; 82272; 82550; 82607; 82728; 82746; 82803; 82948; 83036; 83540; 83605; 83615; 83625; 83690; 83735; 83880; 84100; 84436; 84439; 84443; 84484; 85025; 85045; 85610; 85730; 86677; 86886; 86900; 86901; 86920; 87081; 88305; 92610; 93005; 97110; 97116; 97161-GP; 97530; C9113; J1200; J1815; J1940; J2250; J2405; J2916; J3010; J3475; J7030; P9016; Q0092

== ENCOUNTER 2020-08-09 09:15 | Emergency (ER) | payer MEDICARE, MEDICAID ==
[~2020-08-09] VITALS: Ht 160 cm; Wt 108.9 kg
[~2020-08-09 09:15] MED LIST: AMLO2.5T PO; FER325 PO; FURO20TA8 PO; ISOS10TA9 PO; LACT10SO1 PO; MELA5TAB6 PO; PAX20 PO; PSYL0.4C2 PO; SPIR25TA PO
--- NOTE | 2020-08-09 09:17 | NUR ---
Dr Tatum at bedside examining pt
--- NOTE | 2020-08-09 09:17 | NUR ---
Patient BIBA to bed 7 at this time.
[2020-08-09 09:20] VITALS: BP 167/96
--- NOTE | 2020-08-09 09:21 | NUR ---
74 y/o female from home c/o anxiety x 2 days. Pt states multiple anxiety attacks in the past month. States woke up this morning SOB, denies cough/fever. RR even and unlabored, slightly tachypnic. Denies pain. medhx: anxiety, HTN, Insomnia, depression
[2020-08-09] MEDS ORDERED: LORazepam 0.5 MG TAB PO ONE (09:35)
--- NOTE | 2020-08-09 10:33 | NUR ---
Pt resting with eyes closed, visible rise and fall of the chest. Does not appear anxious at this time. Will continue to monitor.
--- NOTE | 2020-08-09 10:47 | NUR ---
Call pts daughter for D/C-- Zoe [phone]
--- NOTE | 2020-08-09 10:58 | NUR ---
Pt ambulated to restroom with steady gait.
--- NOTE | 2020-08-09 11:10 | NUR ---
Left message for pts daughter Zoe pertaining to pt being discharged.
--- NOTE | 2020-08-09 11:21 | NUR ---
Pt granddaughter will be picking patient up-- approx 10 min [phone]
[2020-08-09 11:25] VITALS: BP 167/96
--- NOTE | 2020-08-09 11:25 | NUR ---
Patient discharged with v/s stable. Written and verbal after care instructions given and explained. Patient alert, oriented and verbalized understanding of instructions. Ambulatory with steady gait. All questions addressed prior to discharge. ID band removed. Patient advised to follow up with PMD. Rx of Ativan 0.5mg tablet and Paxil 20mg given. Patient educated on indication of medication including possible reaction and side effects. Opportunity to ask questions provided and answered.
== END 2020-08-09 11:25 | disposition home or self-care (01) ==
LOC: MED 09:15
DX: F41.9 Anxiety disorder, unspecified (principal); F32.9 Major depressive disorder, single episode, unspecified; I11.0 Hypertensive heart disease with heart failure; Z79.899 Other long term (current) drug therapy; G47.00 Insomnia, unspecified
CPT/HCPCS: 99281; 99283

== ENCOUNTER 2020-08-10 01:25 | Emergency (ER) | payer MEDICARE, MEDICAID ==
[~2020-08-10] VITALS: Ht 160 cm; Wt 116.6 kg
[2020-08-10 01:38] VITALS: BP 155/92
--- NOTE | 2020-08-10 02:00 | NUR ---
ambulated to bed 03
[2020-08-10] MEDS ORDERED: diphenhydrAMINE 50 MG/ML VIAL IM ONE (02:30)
--- NOTE | 2020-08-10 02:42 | NUR ---
74 year old female coming in for anxiety x 3 days. states she is taking paroxetine and ativan with no relief from anxiety. denies any other s/sx denies any injury or trauma. pmhx: anxiety, htn nka
[2020-08-10 02:46] VITALS: BP 155/92
--- NOTE | 2020-08-10 03:06 | NUR ---
Patient discharged with v/s stable. Written and verbal after care instructions given and explained. Patient verbalized understanding. Ambulatory with steady gait. All questions addressed prior to discharge. Advised to follow up with PMD.
== END 2020-08-10 03:06 | disposition home or self-care (01) ==
LOC: MED 01:25
DX: F41.0 Panic disorder [episodic paroxysmal anxiety] (principal); I10 Essential (primary) hypertension; I51.89 Other ill-defined heart diseases; Z79.899 Other long term (current) drug therapy
CPT/HCPCS: 96372; 99283; J1200